=== PATIENT | male | born 1985 | race Caucasian/White ===

== ENCOUNTER 2020-10-09 16:13 | Emergency (ER) | payer SELFPAY ==
[2020-10-09] MEDS ORDERED: Metoclopramide HCl 10 MG TAB ONE (16:45)
[2020-10-09] MEDS ORDERED: diphenhydrAMINE 25 MG CAP ONE (16:45)
[2020-10-10 03:43] LABS: SARS-CoV-2 PCR by NAA Not Detected (NotDetected)
== END 2020-10-09 16:50 | disposition home or self-care (01) ==
LOC: BURERS 16:13
DX: I10 Essential (primary) hypertension (principal); Z20.822 Contact with and (suspected) exposure to COVID-19
CPT/HCPCS: 87635; 87804; 99284; Q0163; U0003; U0005

== ENCOUNTER 2024-06-25 12:28 | Emergency (ER) | payer BC, OTHER | END 2024-06-25 13:21 | disposition home or self-care (01) | LOC: BURERS 12:28 | DX: S39.012A Strain of muscle, fascia and tendon of lower back, initial encounter (principal); R03.0 Elevated blood-pressure reading, without diagnosis of hypertension; X50.0XXA Overexertion from strenuous movement or load, initial encounter; Y99.0 Civilian activity done for income or pay | CPT/HCPCS: 99283 ==